=== PATIENT | female | born 1985 ===

== ENCOUNTER 2018-03-01 09:11 | Emergency (ER) | payer SELFPAY ==
[2018-03-01] MEDS ORDERED: HYDROMORPHONE HCL 1 MG/ML INJ ONE (09:35)
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
== END 2018-03-01 10:19 | disposition left against medical advice (07) ==
LOC: ER 09:11
DX: M54.5 Low back pain (principal); W01.0XXA Fall on same level from slipping, tripping and stumbling without subsequent striking against object, initial encounter; Y93.9 Activity, unspecified; Y92.9 Unspecified place or not applicable
CPT/HCPCS: 96372; 99283; J1170